=== PATIENT | female | born 1945 | race Hispanic/Latino ===

== ENCOUNTER → 2018-04-07 | Outpatient (CLI) | payer MEDICARE | END | disposition home or self-care (01) | LOC: SHCH 09:16 | PROVIDERS: ATTEND Internal Medicine Cardiovascular Disease | DX: I73.9 Peripheral vascular disease, unspecified (principal) | CPT/HCPCS: 93925 ==

== ENCOUNTER → 2019-02-13 | Outpatient (CLI) | payer MEDICARE ==
[~2019-02-13] MED LIST: ASPI-1197 PO; ATOR40TA69 PO; BENZ-51 PO; CARV6.25 PO; CLOP75TA32 PO; DULA1.5P SQ; FURO20TA4 PO; INSU100I21 SQ; IRON OTC PO; LACT1CAP60 PO; LISI10TA7 PO; LORA10CA9 PO; METF-444 PO; MIRA25TA PO; NITR0.4T50 SL; NOVOLOG
== END | disposition home or self-care (01) ==
LOC: SHCH 09:36
PROVIDERS: ATTEND Internal Medicine Cardiovascular Disease
DX: I65.23 Occlusion and stenosis of bilateral carotid arteries (principal); I25.10 Atherosclerotic heart disease of native coronary artery without angina pectoris
CPT/HCPCS: 93880

== ENCOUNTER 2019-10-06 17:11 | Emergency (ER) | payer MEDICARE ==
[~2019-10-06 17:11] MED LIST changes: -ATOR40TA69 PO; -BENZ-51 PO; +CARV12.511 PO; -CARV6.25 PO; -CLOP75TA32 PO; +DONE5TAB33 PO; -DULA1.5P SQ; +ISOS60TA4 PO; -LACT1CAP60 PO; -LISI10TA7 PO; -METF-444 PO; -MIRA25TA PO; +ROSU40TA21 PO
[2019-10-06 18:10] LABS: BASOPHILS % (AUTO) 0.4 % (0.0-5.0); EOSINOPHILS % (AUTO) 1.9 % (0.0-8.0); HEMATOCRIT 33.2 % (36-48); LYMPHOCYTES % (AUTO) 14.3 % (21.0-51.0); MEAN CORPUSCULAR HEMOGLOBIN 28.9 pg (27.0-33.0); MEAN CORPUSCULAR HGB CONC 32.2 g/dL (32.0-36.0); MEAN CORPUSCULAR VOLUME 89.7 fL (79-99); MONOCYTES % (AUTO) 6.6 % (3.0-13.0); NEUTROPHILS % (AUTO) 76.5 % (40.0-77.0); PLATELET COUNT (AUTO) 201 K/uL (130-400); RED CELL DISTRIBUTION WIDTH 12.8 % (11.0-15.5); WHITE BLOOD COUNT (AUTO) 7.4 K/uL (4.8-10.8)
[2019-10-06 18:20] LABS: CREATININE 1.5 mg/dL (0.5-1.5); POTASSIUM 3.2 mmol/L (3.5-5.1)
[2019-10-06 18:24] LABS: INR 0.99 (0.85-1.15); PARTIAL THROMBOPLASTIN TIME 26.1 SEC (26.3-35.5); PROTHROMBIN TIME 10.4 SEC (9.6-11.6)
[2019-10-06 18:25] LABS: ALBUMIN 2.9 g/dL (3.5-5.0); BILIRUBIN,TOTAL 0.3 mg/dL (0.2-1.0); TOTAL PROTEIN, SERUM 6.1 g/dL (6.0-8.3)
[2019-10-06] MEDS ORDERED: POTASSIUM CHLORIDE 10% ELIXIR 20 MEQ/15 ML UDCUP ONE (18:38)
[2019-10-06] MEDS ORDERED: SODIUM CHLORIDE 0.9% 500ML 500 ML IV ONE (18:38)
[2019-10-06 19:24] LABS: APPEARANCE,URINE Clear (CLEAR); BILIRUBIN,URINE Negative (NEGATIVE); COLOR,URINE Yellow (YELLOW); GLUCOSE, URINE (UA) Negative (NEGATIVE); KETONES,URINE Negative (NEGATIVE); LEUKOCYTE ESTERASE ,URINE Trace (NEGATIVE); NITRATE,URINE Negative (NEGATIVE); OCCULT BLOOD,URINE Trace (NEGATIVE); PROTEIN,URINE POS 1+ mg/dL (NEGATIVE); UROBILINOGEN,URINE 0.2 mg/dL (0.2-1.0)
[2019-10-06 19:33] LABS: BACTERIA,URINE Few /HPF (None Seen); MUCUS,URINE Moderate LPF (None Seen); SQUAMOUS EPITHELIAL CELL,UR Few /HPF (0-2)
== END 2019-10-06 20:14 | disposition home or self-care (01) ==
LOC: EDH 17:11
DX: E11.649 Type 2 diabetes mellitus with hypoglycemia without coma (principal); R19.7 Diarrhea, unspecified; E86.0 Dehydration; E78.5 Hyperlipidemia, unspecified; I11.0 Hypertensive heart disease with heart failure; I50.9 Heart failure, unspecified; I25.810 Atherosclerosis of coronary artery bypass graft(s) without angina pectoris; Z88.8 Allergy status to other drugs, medicaments and biological substances; Z79.4 Long term (current) use of insulin; Z98.890 Other specified postprocedural states; Z79.82 Long term (current) use of aspirin; Z79.899 Other long term (current) drug therapy
CPT/HCPCS: 36415; 80053; 81001; 82948 ×3; 85025; 85610; 85730; 93005; 99285; J7040

== ENCOUNTER → 2020-03-26 | Outpatient (CLI) | payer MEDICARE | END | disposition home or self-care (01) | LOC: CANPRECLI → SHCH 13:09 | PROVIDERS: ATTEND Internal Medicine Cardiovascular Disease | DX: I65.23 Occlusion and stenosis of bilateral carotid arteries (principal); I25.10 Atherosclerotic heart disease of native coronary artery without angina pectoris ==

== ENCOUNTER → 2021-05-07 | Outpatient (CLI) | payer MEDICARE ==
[~2021-05-07] MED LIST changes: -ISOS60TA4 PO; +ISOS60TA77 PO
== END | disposition home or self-care (01) ==
LOC: SHCH 09:41
PROVIDERS: ATTEND Internal Medicine Cardiovascular Disease
DX: I65.23 Occlusion and stenosis of bilateral carotid arteries (principal); I25.10 Atherosclerotic heart disease of native coronary artery without angina pectoris; I25.2 Old myocardial infarction; E11.9 Type 2 diabetes mellitus without complications; I10 Essential (primary) hypertension; E78.5 Hyperlipidemia, unspecified; Z95.0 Presence of cardiac pacemaker
CPT/HCPCS: 93880

== ENCOUNTER 2021-09-28 15:59 | Inpatient (IN) | payer MEDICARE ==
[~2021-09-28] VITALS: Ht 157.5 cm; Wt 99.8 kg
[2021-09-28] MEDS: 0.9%NACL 1000ML 1,000 ML IV SCH ×2 (01:00→16:30)
[2021-09-28] MEDS ORDERED: ONDANSETRON 4MG INJ IVP ONE (16:30)
[2021-09-28] MEDS ORDERED: ONDANSETRON 4MG INJ ONE ×2 (16:58→20:05)
[2021-09-28 17:03] LABS: BASOPHILS % (AUTO) 0.2 % (0.0-5.0); HEMATOCRIT 48.8 % (36-48); LYMPHOCYTES % (AUTO) 4.2 % (21.0-51.0); MEAN CORPUSCULAR HEMOGLOBIN 29.6 pg (27.0-33.0); MEAN CORPUSCULAR HGB CONC 30.5 g/dL (32.0-36.0); MONOCYTES % (AUTO) 2.5 % (3.0-13.0); NEUTROPHILS % (AUTO) 92.7 % (40.0-77.0); PLATELET COUNT (AUTO) 174 K/uL (130-400); RED BLOOD CELL COUNT(AUTO) 5.03 MIL/uL (4.00-5.50); RED CELL DISTRIBUTION WIDTH 13.3 % (11.0-15.5); WHITE BLOOD COUNT (AUTO) 15.7 K/uL (4.8-10.8)
[2021-09-28 17:25] LABS: ALBUMIN 3.2 g/dL (3.5-5.0); BILIRUBIN,TOTAL 0.7 mg/dL (0.2-1.0); CREATININE 1.4 mg/dL (0.5-1.5); CRP QUANTITATIVE 38.9 mg/L (0.00-9.0); POTASSIUM 4.1 mmol/L (3.5-5.1); TOTAL PROTEIN, SERUM 7.2 g/dL (6.0-8.3)
[2021-09-28] MEDS ORDERED: ASPIRIN 325MG TAB PO ONE (18:00)
[2021-09-28] MEDS ORDERED: INSULIN HUMULIN R 100 UNIT/ML 3ML SQ ONE (18:00)
[2021-09-28] MEDS ORDERED: NITROGLYCERIN 1GM OINT 1 INCH/1GM TD ONE ×2 (18:00→20:03)
[2021-09-28] MEDS ORDERED: CEFTRIAXONE 1G VIAL IVP ONE (19:00)
[2021-09-28] MEDS ORDERED: INSULIN HUMULIN R 100 UNIT/ML 3ML ONE (20:03)
[2021-09-28] MEDS ORDERED: ASPIRIN 325MG TAB ONE (20:03)
[2021-09-29] MEDS ORDERED: ENOXAPARIN SODIUM 30 MG/0.3 ML SQ SCH ×3
[2021-09-29] MEDS ORDERED: 1/2 NS 1000ML 1,000 ML IV SCH
[2021-09-29] MEDS ORDERED: ONDANSETRON 4MG INJ IVP PRN (00:30)
[2021-09-29] MEDS ORDERED: INSULIN HUMULIN R 100 UNIT/ML 3ML ONE (02:10)
[2021-09-29] MEDS ORDERED: GLUCAGON 1MG KIT 1 MG ML IM PRN (03:30)
[2021-09-29] MEDS ORDERED: DEXTROSE 50%-WATER 50 ML DISP.SYRIN IV PRN (03:30)
[2021-09-29 06:55] LABS: HEMATOCRIT 42.4 % (36-48); MEAN CORPUSCULAR HEMOGLOBIN 29.4 pg (27.0-33.0); MEAN CORPUSCULAR VOLUME 101.4 fL (79-99); RED BLOOD CELL COUNT(AUTO) 4.18 MIL/uL (4.00-5.50); RED CELL DISTRIBUTION WIDTH 13.5 % (11.0-15.5); WHITE BLOOD COUNT (AUTO) 13.5 K/uL (4.8-10.8)
[2021-09-29 07:08] LABS: ALBUMIN 2.6 g/dL (3.5-5.0); BILIRUBIN,TOTAL 0.3 mg/dL (0.2-1.0); CREATININE 1.8 mg/dL (0.5-1.5); POTASSIUM 4.1 mmol/L (3.5-5.1); TOTAL PROTEIN, SERUM 6.2 g/dL (6.0-8.3)
[2021-09-29] MEDS ORDERED: CEFTRIAXONE 1G VIAL 1 GM in 0.9%NACL 100ML 100 ML IVP SCH (08:00)
[2021-09-29] MEDS ORDERED: CEFTRIAXONE 1G VIAL ONE (09:38)
[2021-09-29] MEDS: INSULIN GLARGINE 100 UNITS/ML 10 ML VIAL SQ SCH ×2 (09:42→22:07)
[2021-09-29] MEDS: INSULIN R PO SS1 SQ SCH ×4 (09:42→21:00)
[2021-09-29] MEDS: 0.9%NACL 1000ML 1,000 ML IV SCH ×3 (09:42→20:09)
[2021-09-29 12:20] VITALS: BP 125/86
[2021-09-29 16:00] VITALS: BP 157/57
[2021-09-29 20:24] VITALS: BP 172/73
[2021-09-30 00:20] VITALS: BP 148/72
[2021-09-30] MEDS: 0.9%NACL 1000ML 1,000 ML IV SCH ×2 (01:50→21:50)
[2021-09-30 04:20] VITALS: BP 149/75
[2021-09-30 05:34] LABS: BASOPHILS % (AUTO) 0.3 % (0.0-5.0); EOSINOPHILS % (AUTO) 1.2 % (0.0-8.0); HEMATOCRIT 41.9 % (36-48); LYMPHOCYTES % (AUTO) 14.9 % (21.0-51.0); MEAN CORPUSCULAR HEMOGLOBIN 29.2 pg (27.0-33.0); MEAN CORPUSCULAR HGB CONC 29.6 g/dL (32.0-36.0); MEAN CORPUSCULAR VOLUME 98.6 fL (79-99); MONOCYTES % (AUTO) 6.1 % (3.0-13.0); PLATELET COUNT (AUTO) 151 K/uL (130-400); RED BLOOD CELL COUNT(AUTO) 4.25 MIL/uL (4.00-5.50); RED CELL DISTRIBUTION WIDTH 13.5 % (11.0-15.5); WHITE BLOOD COUNT (AUTO) 9.2 K/uL (4.8-10.8)
[2021-09-30 05:58] LABS: ALBUMIN 2.4 g/dL (3.5-5.0); BILIRUBIN,TOTAL 0.3 mg/dL (0.2-1.0); CREATININE 1.4 mg/dL (0.5-1.5); MAGNESIUM 1.9 mg/dL (1.80-2.40); PHOSPHORUS 2.7 mg/dL (2.5-4.9); POTASSIUM 3.7 mmol/L (3.5-5.1); TOTAL PROTEIN, SERUM 5.8 g/dL (6.0-8.3)
[2021-09-30] MEDS: INSULIN R PO SS1 SQ SCH ×4 (06:31→21:00)
[2021-09-30 08:00] VITALS: BP 153/62
[2021-09-30] MEDS: INSULIN GLARGINE 100 UNITS/ML 10 ML VIAL SQ SCH ×2 (09:51→21:54)
[2021-09-30 11:53] VITALS: BP 187/78
[2021-09-30 16:00] VITALS: BP 184/85
[2021-09-30 20:04] VITALS: BP 167/75
[2021-09-30] MEDS ORDERED: CARVEDILOL 12.5 MG TABLET PO ONE (23:49)
[2021-09-30] MEDS: CARVEDILOL 12.5 MG TABLET PO SCH (23:51)
[2021-10-01 00:04] VITALS: BP 189/89
[2021-10-01 04:04] VITALS: BP 175/75
[2021-10-01] MEDS: 0.9%NACL 1000ML 1,000 ML IV SCH (04:21)
[2021-10-01] MEDS: INSULIN R PO SS1 SQ SCH ×2 (06:39→12:26)
[2021-10-01 07:54] VITALS: BP 171/69
[2021-10-01] MEDS ORDERED: CEFTRIAXONE 1G VIAL IVP SCH (08:00)
[2021-10-01] MEDS: CARVEDILOL 12.5 MG TABLET PO SCH (09:42)
[2021-10-01] MEDS: INSULIN GLARGINE 100 UNITS/ML 10 ML VIAL SQ SCH (09:47)
[2021-10-01 12:00] VITALS: BP 188/74
== END 2021-10-01 13:45 | disposition home or self-care (01) | DRG 372 ==
LOC: EDH 15:59 → EDHIP 18:50 → OBSVTOIN 18:50 → 3BH 09-29 03:29 → EDHIP 09-29 04:05 → 3CH 09-29 12:20
PROVIDERS: ADMIT Internal Medicine; ATTEND Internal Medicine
DX: A04.9 Bacterial intestinal infection, unspecified (principal); Z68.41 Body mass index [BMI] 40.0-44.9, adult; I12.9 Hypertensive chronic kidney disease with stage 1 through stage 4 chronic kidney disease, or unspecified chronic kidney disease; K29.70 Gastritis, unspecified, without bleeding; D72.829 Elevated white blood cell count, unspecified; E11.65 Type 2 diabetes mellitus with hyperglycemia; E78.00 Pure hypercholesterolemia, unspecified; E86.0 Dehydration; N18.9 Chronic kidney disease, unspecified; E11.22 Type 2 diabetes mellitus with diabetic chronic kidney disease; E66.9 Obesity, unspecified; Z88.8 Allergy status to other drugs, medicaments and biological substances
CPT/HCPCS: 36415; 71045; 74176; 80053; 82010; 82948; 83605; 83690; 83735; 84100; 84484; 85025; 85027; 86140; 87040; 93005; G0378; J0696; J1650; J1815; J2405; J7030

== ENCOUNTER 2021-11-24 08:27 | Day surgery (SDC) | payer OTHER, MEDICARE ==
[2021-11-20 10:47] VITALS: BP 147/56
[2021-11-20 13:44] LABS: BASOPHILS % (AUTO) 0.6 % (0.0-5.0); EOSINOPHILS % (AUTO) 3.7 % (0.0-8.0); HEMATOCRIT 38.6 % (36-48); LYMPHOCYTES % (AUTO) 21.7 % (21.0-51.0); MEAN CORPUSCULAR HEMOGLOBIN 29.6 pg (27.0-33.0); MEAN CORPUSCULAR HGB CONC 31.9 g/dL (32.0-36.0); MONOCYTES % (AUTO) 6.8 % (3.0-13.0); PLATELET COUNT (AUTO) 148 K/uL (130-400); RED BLOOD CELL COUNT(AUTO) 4.15 MIL/uL (4.00-5.50); RED CELL DISTRIBUTION WIDTH 12.6 % (11.0-15.5); WHITE BLOOD COUNT (AUTO) 5.4 K/uL (4.8-10.8)
[2021-11-20 13:54] LABS: CREATININE 1.3 mg/dL (0.5-1.5)
[2021-11-20 13:57] LABS: INR 1.03 (0.85-1.15); PROTHROMBIN TIME 11.2 SEC (9.6-11.6)
[2021-11-20 13:58] LABS: PARTIAL THROMBOPLASTIN TIME 27.3 SEC (26.3-35.5)
[~2021-11-24] VITALS: Ht 167.6 cm; Wt 107.8 kg
[2021-11-24] VITALS (8 sets, daily range): BP systolic 114–151; BP diastolic 52–95
[~2021-11-24 08:27] MED LIST changes: +0.9% NACL 500ML IV.SOLN 500 ML IV SCH; -CARV12.511 PO; +CEFAZOLIN SODIUM 1 GM VIAL IVP SCH
[2021-11-24] MEDS ORDERED: 0.9%NACL 1000ML 1,000 ML IV ONE (08:41)
[2021-11-24] MEDS ORDERED: DULA1.5P SQ (09:43)
[2021-11-24] MEDS ORDERED: ESCI-8 PO (09:43)
[2021-11-24] MEDS ORDERED: EZET10TA48 PO (09:43)
[2021-11-24] MEDS ORDERED: INSNOV IVP (09:43)
[2021-11-24] MEDS ORDERED: INSLAN SQ (09:43)
[2021-11-24] MEDS ORDERED: CARV12.511 PO (09:43)
[2021-11-24] MEDS ORDERED: BUPIVACAINE/PF 0.25% 30ML VIAL IJ ONE (11:55)
[2021-11-24] MEDS ORDERED: IOHEXOL-350 50ML VIAL IV ONE (11:55)
[2021-11-24] MEDS ORDERED: LIDOCAINE HCL 1% MDV 50ML VIAL ONE (11:56)
[2021-11-24] MEDS ORDERED: MIDAZOLAM HCL 1 MG/ML 2ML VIAL ONE (11:56)
[2021-11-24] MEDS ORDERED: FENTANYL CITRATE PF 50 MCG/1 ML 2ML VIAL ONE (11:56)
[2021-11-24] MEDS ORDERED: MEPERIDINE-PF 50 MG/ML SYG ONE (12:56)
[2021-11-24] MEDS ORDERED: TRAM50TA4 PO (14:56)
[2021-11-24] MEDS ORDERED: ACETAMINOPHEN WITH CODEINE 1 TAB TAB PO PRN (15:00)
== END 2021-11-24 17:05 | disposition home or self-care (01) ==
LOC: DAH 08:27
PROVIDERS: ATTEND Internal Medicine Cardiovascular Disease
DX: Z45.010 Encounter for checking and testing of cardiac pacemaker pulse generator [battery] (principal); I49.5 Sick sinus syndrome; I44.0 Atrioventricular block, first degree; E11.22 Type 2 diabetes mellitus with diabetic chronic kidney disease; I12.9 Hypertensive chronic kidney disease with stage 1 through stage 4 chronic kidney disease, or unspecified chronic kidney disease; N18.30 Chronic kidney disease, stage 3 unspecified; E11.40 Type 2 diabetes mellitus with diabetic neuropathy, unspecified; E11.21 Type 2 diabetes mellitus with diabetic nephropathy; E78.5 Hyperlipidemia, unspecified; I25.10 Atherosclerotic heart disease of native coronary artery without angina pectoris; I25.2 Old myocardial infarction; Z79.01 Long term (current) use of anticoagulants; Z95.5 Presence of coronary angioplasty implant and graft; Z86.73 Personal history of transient ischemic attack (TIA), and cerebral infarction without residual deficits; Z83.3 Family history of diabetes mellitus; Z80.9 Family history of malignant neoplasm, unspecified; Z79.82 Long term (current) use of aspirin; Z79.899 Other long term (current) drug therapy; Z98.890 Other specified postprocedural states
CPT/HCPCS: 33228; 36415; 80048; 82948; 85025; 85610; 85730; 93005 ×2; A4215; A4216; A4221; A4222; A4223 ×3; A4606; A4663; C1785; J0690; J2175; J2250; J3490 ×2; J7030; 33229; 99156; 99157; C2621; J3010; Q9967

== ENCOUNTER 2022-01-25 17:31 | Inpatient (IN) | payer OTHER, MEDICARE ==
[~2022-01-25] VITALS: Ht 167.6 cm; Wt 113.7 kg
[~2022-01-25 17:31] MED LIST changes: -0.9% NACL 500ML IV.SOLN 500 ML IV SCH; +CARV12.511 PO; -CEFAZOLIN SODIUM 1 GM VIAL IVP SCH; +DULA1.5P SQ; +ESCI-8 PO; +EZET10TA48 PO; +INSLAN SQ; +INSNOV IVP; -INSU100I21 SQ; -IRON OTC PO; -NITR0.4T50 SL; -NOVOLOG; -ROSU40TA21 PO; +TRAM50TA4 PO
[2022-01-25 17:47] LABS: BASOPHILS % (AUTO) 0.5 % (0.0-5.0); HEMATOCRIT 39.9 % (36-48); MEAN CORPUSCULAR HEMOGLOBIN 29.6 pg (27.0-33.0); MEAN CORPUSCULAR HGB CONC 31.3 g/dL (32.0-36.0); MEAN CORPUSCULAR VOLUME 94.5 fL (79-99); MONOCYTES % (AUTO) 5.5 % (3.0-13.0); NEUTROPHILS % (AUTO) 77.7 % (40.0-77.0); PLATELET COUNT (AUTO) 149 K/uL (130-400); RED BLOOD CELL COUNT(AUTO) 4.22 MIL/uL (4.00-5.50); RED CELL DISTRIBUTION WIDTH 13.4 % (11.0-15.5); WHITE BLOOD COUNT (AUTO) 6.5 K/uL (4.8-10.8)
[2022-01-25 17:58] LABS: CREATININE 1.1 mg/dL (0.5-1.5); POTASSIUM 3.9 mmol/L (3.5-5.1)
[2022-01-25] MEDS ORDERED: FUROSEMIDE 40MG VIAL IV ONE (18:00)
[2022-01-25] MEDS ORDERED: NIFEDIPINE 10 MG CAP PO ONE (18:00)
[2022-01-25 18:07] LABS: ALBUMIN 2.6 g/dL (3.5-5.0); BILIRUBIN,TOTAL 0.2 mg/dL (0.2-1.0)
[2022-01-25] MEDS ORDERED: INSULIN HUMULIN R 100 UNIT/ML 3ML IV ONE (18:30)
[2022-01-25] MEDS ORDERED: NITROGLYCERIN 1GM OINT 1 INCH/1GM TD ONE (18:30)
[2022-01-26] VITALS (8 sets, daily range): BP systolic 153–190; BP diastolic 60–82
[2022-01-26 01:42] LABS: CREATINE KINASE, TOTAL 90 U/L (21-232); MYOGLOBIN 64 ng/mL (10-92)
[2022-01-26] MEDS ORDERED: FUROSEMIDE 40MG VIAL IV SCH (03:30)
[2022-01-26] MEDS ORDERED: ROSU40TA21 PO (03:50)
[2022-01-26] MEDS: CEFTRIAXONE 1G VIAL IVP SCH (04:07)
[2022-01-26] MEDS: FUROSEMIDE 40MG VIAL IV SCH ×3 (04:08→21:16)
[2022-01-26 05:57] LABS: BASOPHILS % (AUTO) 0.3 % (0.0-5.0); HEMATOCRIT 37.8 % (36-48); LYMPHOCYTES % (AUTO) 17.2 % (21.0-51.0); MEAN CORPUSCULAR HEMOGLOBIN 29.8 pg (27.0-33.0); MEAN CORPUSCULAR HGB CONC 31.5 g/dL (32.0-36.0); MEAN CORPUSCULAR VOLUME 94.7 fL (79-99); MONOCYTES % (AUTO) 6.3 % (3.0-13.0); PLATELET COUNT (AUTO) 152 K/uL (130-400); RED BLOOD CELL COUNT(AUTO) 3.99 MIL/uL (4.00-5.50); RED CELL DISTRIBUTION WIDTH 13.5 % (11.0-15.5); WHITE BLOOD COUNT (AUTO) 6.3 K/uL (4.8-10.8)
[2022-01-26 06:07] LABS: CREATININE 1.1 mg/dL (0.5-1.5); POTASSIUM 3.6 mmol/L (3.5-5.1)
[2022-01-26 06:18] LABS: ALBUMIN 2.5 g/dL (3.5-5.0); BILIRUBIN,TOTAL 0.3 mg/dL (0.2-1.0); TOTAL PROTEIN, SERUM 5.7 g/dL (6.0-8.3)
[2022-01-26] MEDS: ISOSORBIDE MONO 60MG SR TAB PO SCH (08:53)
[2022-01-26] MEDS: CITALOPRAM 20 MG TABLET PO SCH (08:54)
[2022-01-26] MEDS: EZETIMIBE 10 MG TAB PO SCH (08:54)
[2022-01-26] MEDS: LORATADINE 10 MG TABLET PO SCH (08:54)
[2022-01-26] MEDS: ASPIRIN 81MG CHEW TAB PO SCH (08:54)
[2022-01-26] MEDS: DONEPEZIL HCL 5 MG TAB PO SCH (08:54)
[2022-01-26] MEDS ORDERED: IOHEXOL-350 75 ML VIAL IV ONE (12:00)
[2022-01-26] MEDS: INSULIN HUMULIN R 100 UNIT/ML 3ML SQ SCH ×2 (16:44→21:24)
[2022-01-26] MEDS: ATORVASTATIN 40 MG TABLET PO SCH (21:10)
[2022-01-26] MEDS: CARVEDILOL 12.5 MG TABLET PO SCH (21:11)
[2022-01-27 03:40] VITALS: BP 140/71
[2022-01-27 04:10] LABS: HEMATOCRIT 37.2 % (36-48); MEAN CORPUSCULAR HEMOGLOBIN 29.4 pg (27.0-33.0); MEAN CORPUSCULAR HGB CONC 31.5 g/dL (32.0-36.0); MEAN CORPUSCULAR VOLUME 93.5 fL (79-99); RED BLOOD CELL COUNT(AUTO) 3.98 MIL/uL (4.00-5.50); RED CELL DISTRIBUTION WIDTH 13.2 % (11.0-15.5); WHITE BLOOD COUNT (AUTO) 8.1 K/uL (4.8-10.8)
[2022-01-27] MEDS: CEFTRIAXONE 1G VIAL IVP SCH (04:11)
[2022-01-27] MEDS: FUROSEMIDE 40MG VIAL IV SCH (04:12)
[2022-01-27 04:28] LABS: ALBUMIN 2.5 g/dL (3.5-5.0); BILIRUBIN,TOTAL 0.3 mg/dL (0.2-1.0); CREATININE 1.1 mg/dL (0.5-1.5); POTASSIUM 3.4 mmol/L (3.5-5.1); TOTAL PROTEIN, SERUM 5.7 g/dL (6.0-8.3)
[2022-01-27] MEDS: INSULIN HUMULIN R 100 UNIT/ML 3ML SQ SCH ×4 (06:53→20:43)
[2022-01-27] MEDS ORDERED: POTASSIUM CHLORIDE 10% ELIXIR 20 MEQ/15 ML UDCUP PO PRN (07:00)
[2022-01-27] MEDS ORDERED: POTASSIUM CHLORIDE 20MEQ/100ML 100 ML IV PRN (07:00)
[2022-01-27] MEDS ORDERED: GLUCAGON 1MG KIT 1 MG ML IM PRN (07:00)
[2022-01-27] MEDS ORDERED: LIDOCAINE HCL-MPF 1% 2ML VIAL IV PRN (07:00)
[2022-01-27] MEDS: KCL 20 MEQ ERTAB PO PRN (07:03)
[2022-01-27 08:14] VITALS: BP 181/79
[2022-01-27] MEDS: ISOSORBIDE MONO 60MG SR TAB PO SCH (08:44)
[2022-01-27] MEDS: LORATADINE 10 MG TABLET PO SCH (08:44)
[2022-01-27] MEDS: ASPIRIN 81MG CHEW TAB PO SCH (08:44)
[2022-01-27] MEDS: EZETIMIBE 10 MG TAB PO SCH (08:44)
[2022-01-27] MEDS: CITALOPRAM 20 MG TABLET PO SCH (08:44)
[2022-01-27] MEDS: DONEPEZIL HCL 5 MG TAB PO SCH (08:44)
[2022-01-27] MEDS ORDERED: LOSARTAN 25 MG TABLET PO SCH (09:00)
[2022-01-27 11:42] VITALS: BP 156/70
[2022-01-27 16:23] VITALS: BP 196/76
[2022-01-27] MEDS: CLONIDINE HCL 0.1 MG TABLET PO PRN (18:07)
[2022-01-27] MEDS: ATORVASTATIN 40 MG TABLET PO SCH (20:33)
[2022-01-27] MEDS: CARVEDILOL 12.5 MG TABLET PO SCH (20:34)
[2022-01-27 20:40] VITALS: BP 161/58
[2022-01-27] MEDS: INSULIN GLARGINE 100 UNITS/ML 10 ML VIAL SQ SCH (20:44)
[2022-01-27 23:31] VITALS: BP 143/61
[2022-01-28] MEDS: CEFTRIAXONE 1G VIAL IVP SCH (03:38)
[2022-01-28 04:11] VITALS: BP 142/67
[2022-01-28 04:41] LABS: HEMATOCRIT 36.4 % (36-48); MEAN CORPUSCULAR HGB CONC 32.1 g/dL (32.0-36.0); MEAN CORPUSCULAR VOLUME 93.3 fL (79-99); RED BLOOD CELL COUNT(AUTO) 3.9 MIL/uL (4.00-5.50); RED CELL DISTRIBUTION WIDTH 13.2 % (11.0-15.5); WHITE BLOOD COUNT (AUTO) 5.5 K/uL (4.8-10.8)
[2022-01-28 04:55] LABS: CREATININE 1.4 mg/dL (0.5-1.5); POTASSIUM 3.2 mmol/L (3.5-5.1)
[2022-01-28] MEDS: KCL 20 MEQ ERTAB PO PRN ×3 (06:02→10:48)
[2022-01-28] MEDS: INSULIN HUMULIN R 100 UNIT/ML 3ML SQ SCH ×4 (06:02→20:42)
[2022-01-28 07:34] VITALS: BP 140/52
[2022-01-28] MEDS: LORATADINE 10 MG TABLET PO SCH (09:35)
[2022-01-28] MEDS: ISOSORBIDE MONO 60MG SR TAB PO SCH (09:35)
[2022-01-28] MEDS: ASPIRIN 81MG CHEW TAB PO SCH (09:35)
[2022-01-28] MEDS: CITALOPRAM 20 MG TABLET PO SCH (09:35)
[2022-01-28] MEDS: EZETIMIBE 10 MG TAB PO SCH (09:35)
[2022-01-28] MEDS: DONEPEZIL HCL 5 MG TAB PO SCH (09:35)
[2022-01-28 11:11] VITALS: BP 180/67
[2022-01-28 15:57] VITALS: BP 169/98
[2022-01-28 20:04] VITALS: BP 184/69
[2022-01-28] MEDS: CARVEDILOL 12.5 MG TABLET PO SCH (20:33)
[2022-01-28] MEDS: ATORVASTATIN 40 MG TABLET PO SCH (20:33)
[2022-01-28] MEDS: INSULIN GLARGINE 100 UNITS/ML 10 ML VIAL SQ SCH (20:43)
[2022-01-28 23:34] VITALS: BP 174/78
[2022-01-28] MEDS: CLONIDINE HCL 0.1 MG TABLET PO PRN (23:39)
[2022-01-29] VITALS (8 sets, daily range): BP systolic 134–182; BP diastolic 58–83
[2022-01-29 01:36] LABS: APPEARANCE,URINE Cloudy (CLEAR); BILIRUBIN,URINE Negative (NEGATIVE); COLOR,URINE Yellow (YELLOW); GLUCOSE, URINE (UA) Negative (NEGATIVE); KETONES,URINE Negative (NEGATIVE); LEUKOCYTE ESTERASE ,URINE Small (NEGATIVE); NITRATE,URINE Negative (NEGATIVE); OCCULT BLOOD,URINE Small (NEGATIVE); PH,URINE 5.5 (5.0-8.0); PROTEIN,URINE 300 mg/dL (NEGATIVE); UROBILINOGEN,URINE 0.2 mg/dL (0.2-1.0)
[2022-01-29 01:48] LABS: BACTERIA,URINE Few /HPF (None Seen); SQUAMOUS EPITHELIAL CELL,UR Many /HPF (0-2)
[2022-01-29] MEDS: CEFTRIAXONE 1G VIAL IVP SCH (02:42)
[2022-01-29] MEDS: CLONIDINE HCL 0.1 MG TABLET PO PRN ×2 (04:30→08:22)
[2022-01-29 05:08] LABS: CREATININE 1.2 mg/dL (0.5-1.5); POTASSIUM 3.9 mmol/L (3.5-5.1)
[2022-01-29] MEDS: INSULIN HUMULIN R 100 UNIT/ML 3ML SQ SCH ×4 (06:17→20:13)
[2022-01-29] MEDS ORDERED: AMLO5TAB4 PO (06:21)
[2022-01-29] MEDS: CITALOPRAM 20 MG TABLET PO SCH (08:21)
[2022-01-29] MEDS: ISOSORBIDE MONO 60MG SR TAB PO SCH (08:21)
[2022-01-29] MEDS: EZETIMIBE 10 MG TAB PO SCH (08:21)
[2022-01-29] MEDS: AMLODIPINE 5 MG TAB PO SCH (08:22)
[2022-01-29] MEDS: LORATADINE 10 MG TABLET PO SCH (08:22)
[2022-01-29] MEDS: DONEPEZIL HCL 5 MG TAB PO SCH (08:22)
[2022-01-29] MEDS: ASPIRIN 81MG CHEW TAB PO SCH (08:22)
[2022-01-29] MEDS ORDERED: ACETAMINOPHEN 500 MG TABLET ONE (16:22)
[2022-01-29] MEDS: CARVEDILOL 12.5 MG TABLET PO SCH (20:10)
[2022-01-29] MEDS: ATORVASTATIN 40 MG TABLET PO SCH (20:11)
[2022-01-29] MEDS: INSULIN GLARGINE 100 UNITS/ML 10 ML VIAL SQ SCH (20:14)
[2022-01-30] MEDS: CEFTRIAXONE 1G VIAL IVP SCH (02:39)
[2022-01-30 04:20] VITALS: BP 154/71
[2022-01-30 04:28] LABS: CREATININE 1.3 mg/dL (0.5-1.5); POTASSIUM 3.9 mmol/L (3.5-5.1)
[2022-01-30] MEDS: INSULIN HUMULIN R 100 UNIT/ML 3ML SQ SCH ×3 (05:13→21:17)
[2022-01-30 08:24] VITALS: BP 164/74
[2022-01-30] MEDS ORDERED: LOSARTAN 50 MG TABLET ONE (08:24)
[2022-01-30] MEDS: AMLODIPINE 5 MG TAB PO SCH (08:28)
[2022-01-30] MEDS: ISOSORBIDE MONO 60MG SR TAB PO SCH (08:28)
[2022-01-30] MEDS: ACETAMINOPHEN 500 MG TABLET PO PRN (08:29)
[2022-01-30] MEDS: CITALOPRAM 20 MG TABLET PO SCH (08:30)
[2022-01-30] MEDS: ASPIRIN 81MG CHEW TAB PO SCH (08:30)
[2022-01-30] MEDS: EZETIMIBE 10 MG TAB PO SCH (08:30)
[2022-01-30] MEDS: DONEPEZIL HCL 5 MG TAB PO SCH (08:30)
[2022-01-30] MEDS: LORATADINE 10 MG TABLET PO SCH (08:30)
[2022-01-30] MEDS: LOSARTAN 50 MG TABLET PO SCH (08:36)
[2022-01-30 11:10] VITALS: BP 164/69
[2022-01-30 15:43] VITALS: BP 155/62
[2022-01-30 20:19] VITALS: BP 162/68
[2022-01-30] MEDS: ATORVASTATIN 40 MG TABLET PO SCH (21:09)
[2022-01-30] MEDS: CARVEDILOL 12.5 MG TABLET PO SCH (21:09)
[2022-01-30] MEDS: INSULIN GLARGINE 100 UNITS/ML 10 ML VIAL SQ SCH (21:15)
[2022-01-30 23:31] VITALS: BP 164/82
[2022-01-31] MEDS: CLONIDINE HCL 0.1 MG TABLET PO PRN (00:22)
[2022-01-31] MEDS: CEFTRIAXONE 1G VIAL IVP SCH (02:47)
[2022-01-31 04:44] VITALS: BP 151/62
[2022-01-31] MEDS: INSULIN HUMULIN R 100 UNIT/ML 3ML SQ SCH ×4 (05:47→21:33)
[2022-01-31 08:12] VITALS: BP 154/69
[2022-01-31] MEDS: AMLODIPINE 5 MG TAB PO SCH (08:52)
[2022-01-31] MEDS: LORATADINE 10 MG TABLET PO SCH (08:52)
[2022-01-31] MEDS: LOSARTAN 50 MG TABLET PO SCH (08:52)
[2022-01-31] MEDS: EZETIMIBE 10 MG TAB PO SCH (08:53)
[2022-01-31] MEDS: ISOSORBIDE MONO 60MG SR TAB PO SCH (08:53)
[2022-01-31] MEDS: DONEPEZIL HCL 5 MG TAB PO SCH (08:53)
[2022-01-31] MEDS: CITALOPRAM 20 MG TABLET PO SCH (08:53)
[2022-01-31] MEDS: ASPIRIN 81MG CHEW TAB PO SCH (08:53)
[2022-01-31] MEDS: ACETAMINOPHEN 500 MG TABLET PO PRN (09:05)
[2022-01-31 11:11] VITALS: BP 159/71
[2022-01-31 16:22] VITALS: BP 148/70
[2022-01-31 20:32] VITALS: BP 186/76
[2022-01-31] MEDS: ATORVASTATIN 40 MG TABLET PO SCH (21:23)
[2022-01-31] MEDS: CARVEDILOL 12.5 MG TABLET PO SCH (21:28)
[2022-01-31] MEDS: INSULIN GLARGINE 100 UNITS/ML 10 ML VIAL SQ SCH (21:32)
[2022-01-31 23:43] VITALS: BP 150/65
[2022-02-01 03:55] VITALS: BP 178/65
[2022-02-01] MEDS: CEFTRIAXONE 1G VIAL IVP SCH (04:17)
[2022-02-01] MEDS: INSULIN HUMULIN R 100 UNIT/ML 3ML SQ SCH ×4 (06:16→20:31)
[2022-02-01 07:35] VITALS: BP_SYST 197; BP_SYST 203; BP_DIAS 75; BP_DIAS 82
[2022-02-01] MEDS: AMLODIPINE 5 MG TAB PO SCH (08:27)
[2022-02-01] MEDS: LOSARTAN 50 MG TABLET PO SCH (08:27)
[2022-02-01] MEDS: CLONIDINE HCL 0.1 MG TABLET PO PRN (08:27)
[2022-02-01] MEDS: EZETIMIBE 10 MG TAB PO SCH (08:27)
[2022-02-01] MEDS: ASPIRIN 81MG CHEW TAB PO SCH (08:27)
[2022-02-01] MEDS: LORATADINE 10 MG TABLET PO SCH (08:27)
[2022-02-01] MEDS: CITALOPRAM 20 MG TABLET PO SCH (08:27)
[2022-02-01] MEDS: ISOSORBIDE MONO 60MG SR TAB PO SCH (08:28)
[2022-02-01 09:30] VITALS: BP_SYST 183; BP_SYST 196; BP_DIAS 59; BP_DIAS 67
[2022-02-01 11:35] VITALS: BP 194/56
[2022-02-01] MEDS: DONEPEZIL HCL 5 MG TAB PO SCH (12:05)
[2022-02-01] MEDS: CARVEDILOL 25 MG TABLET PO SCH ×2 (12:40→20:29)
[2022-02-01 15:35] VITALS: BP 129/50
[2022-02-01 20:00] VITALS: BP 155/60
[2022-02-01] MEDS: ATORVASTATIN 40 MG TABLET PO SCH (20:29)
[2022-02-01] MEDS: INSULIN GLARGINE 100 UNITS/ML 10 ML VIAL SQ SCH (20:30)
[2022-02-02] VITALS (7 sets, daily range): BP systolic 135–165; BP diastolic 51–73
[2022-02-02] MEDS: CEFTRIAXONE 1G VIAL IVP SCH (02:39)
[2022-02-02 04:37] LABS: BASOPHILS % (AUTO) 0.4 % (0.0-5.0); EOSINOPHILS % (AUTO) 3.8 % (0.0-8.0); HEMATOCRIT 36.3 % (36-48); MEAN CORPUSCULAR HEMOGLOBIN 30.2 pg (27.0-33.0); MEAN CORPUSCULAR HGB CONC 32.2 g/dL (32.0-36.0); MEAN CORPUSCULAR VOLUME 93.8 fL (79-99); MONOCYTES % (AUTO) 7.7 % (3.0-13.0); NEUTROPHILS % (AUTO) 64.9 % (40.0-77.0); PLATELET COUNT (AUTO) 130 K/uL (130-400); RED BLOOD CELL COUNT(AUTO) 3.87 MIL/uL (4.00-5.50); RED CELL DISTRIBUTION WIDTH 12.7 % (11.0-15.5); WHITE BLOOD COUNT (AUTO) 4.7 K/uL (4.8-10.8)
[2022-02-02 05:04] LABS: ALBUMIN 2.3 g/dL (3.5-5.0); BILIRUBIN,TOTAL 0.2 mg/dL (0.2-1.0); CREATININE 1.4 mg/dL (0.5-1.5); POTASSIUM 4.2 mmol/L (3.5-5.1); TOTAL PROTEIN, SERUM 5.5 g/dL (6.0-8.3)
[2022-02-02] MEDS: INSULIN HUMULIN R 100 UNIT/ML 3ML SQ SCH ×4 (05:59→20:14)
[2022-02-02] MEDS: CITALOPRAM 20 MG TABLET PO SCH (09:29)
[2022-02-02] MEDS: EZETIMIBE 10 MG TAB PO SCH (09:29)
[2022-02-02] MEDS: DONEPEZIL HCL 5 MG TAB PO SCH (09:30)
[2022-02-02] MEDS: CARVEDILOL 25 MG TABLET PO SCH ×2 (09:31→20:15)
[2022-02-02] MEDS: ASPIRIN 81MG CHEW TAB PO SCH (09:32)
[2022-02-02] MEDS: LORATADINE 10 MG TABLET PO SCH (09:33)
[2022-02-02] MEDS: AMLODIPINE 5 MG TAB PO SCH (09:33)
[2022-02-02] MEDS: ISOSORBIDE MONO 60MG SR TAB PO SCH (09:34)
[2022-02-02] MEDS: LOSARTAN 100 MG TABLET PO SCH (09:34)
[2022-02-02] MEDS ORDERED: FUROSEMIDE 20 MG TABLET ONE (12:45)
[2022-02-02] MEDS: FUROSEMIDE 20 MG TABLET PO SCH (13:06)
[2022-02-02] MEDS ORDERED: DIPHENOXYLATE HCL/ATROPINE 2.5/0.025 MG TAB PO SCH (17:00)
[2022-02-02] MEDS ORDERED: LOPERAMIDE HCL 2 MG CAP PO PRN (18:30)
[2022-02-02] MEDS: INSULIN GLARGINE 100 UNITS/ML 10 ML VIAL SQ SCH (20:13)
[2022-02-02] MEDS: ATORVASTATIN 40 MG TABLET PO SCH (20:15)
[2022-02-03 04:00] VITALS: BP 151/75
[2022-02-03] MEDS: CEFTRIAXONE 1G VIAL IVP SCH (04:23)
[2022-02-03] MEDS: INSULIN HUMULIN R 100 UNIT/ML 3ML SQ SCH ×4 (06:25→21:49)
[2022-02-03 08:00] VITALS: BP 154/75
[2022-02-03] MEDS: FUROSEMIDE 20 MG TABLET PO SCH (09:00)
[2022-02-03] MEDS ORDERED: FUROSEMIDE 20 MG TABLET ONE (09:18)
[2022-02-03] MEDS: CITALOPRAM 20 MG TABLET PO SCH (09:40)
[2022-02-03] MEDS: ASPIRIN 81MG CHEW TAB PO SCH (09:42)
[2022-02-03] MEDS: CARVEDILOL 25 MG TABLET PO SCH ×2 (09:43→21:56)
[2022-02-03] MEDS: ISOSORBIDE MONO 60MG SR TAB PO SCH (09:44)
[2022-02-03] MEDS: DONEPEZIL HCL 5 MG TAB PO SCH (09:44)
[2022-02-03] MEDS: LORATADINE 10 MG TABLET PO SCH (09:45)
[2022-02-03] MEDS: AMLODIPINE 5 MG TAB PO SCH (09:46)
[2022-02-03] MEDS: LOSARTAN 100 MG TABLET PO SCH (09:46)
[2022-02-03] MEDS: EZETIMIBE 10 MG TAB PO SCH (09:46)
[2022-02-03 11:56] VITALS: BP 180/72
[2022-02-03 16:00] VITALS: BP 149/60
[2022-02-03 20:00] VITALS: BP 142/60
[2022-02-03] MEDS: INSULIN GLARGINE 100 UNITS/ML 10 ML VIAL SQ SCH (21:48)
[2022-02-03] MEDS: ATORVASTATIN 40 MG TABLET PO SCH (21:55)
[2022-02-03] MEDS: ACETAMINOPHEN 500 MG TABLET PO PRN (21:55)
[2022-02-04] VITALS (7 sets, daily range): BP systolic 127–156; BP diastolic 42–80
[2022-02-04] MEDS: CEFTRIAXONE 1G VIAL IVP SCH (03:09)
[2022-02-04] MEDS: INSULIN HUMULIN R 100 UNIT/ML 3ML SQ SCH ×4 (06:06→21:27)
[2022-02-04] MEDS: EZETIMIBE 10 MG TAB PO SCH (10:18)
[2022-02-04] MEDS: AMLODIPINE 5 MG TAB PO SCH (10:18)
[2022-02-04] MEDS: ASPIRIN 81MG CHEW TAB PO SCH (10:18)
[2022-02-04] MEDS: LOSARTAN 100 MG TABLET PO SCH (10:18)
[2022-02-04] MEDS: LORATADINE 10 MG TABLET PO SCH (10:18)
[2022-02-04] MEDS: DONEPEZIL HCL 5 MG TAB PO SCH (10:18)
[2022-02-04] MEDS: ISOSORBIDE MONO 60MG SR TAB PO SCH (10:18)
[2022-02-04] MEDS: CITALOPRAM 20 MG TABLET PO SCH (10:18)
[2022-02-04] MEDS: CARVEDILOL 25 MG TABLET PO SCH ×2 (10:19→21:01)
[2022-02-04] MEDS: FUROSEMIDE 20 MG TABLET PO SCH (10:20)
[2022-02-04] MEDS: ATORVASTATIN 40 MG TABLET PO SCH (21:01)
[2022-02-04] MEDS: INSULIN GLARGINE 100 UNITS/ML 10 ML VIAL SQ SCH (21:29)
[2022-02-05] MEDS: DEXTROSE 50%-WATER 50 ML DISP.SYRIN IV PRN ×2 (01:45→04:51)
[2022-02-05] MEDS: CEFTRIAXONE 1G VIAL IVP SCH (04:04)
[2022-02-05 04:16] VITALS: BP 152/75
[2022-02-05] MEDS: INSULIN HUMULIN R 100 UNIT/ML 3ML SQ SCH ×2 (07:30→12:30)
[2022-02-05 08:00] VITALS: BP 158/48
[2022-02-05] MEDS: CITALOPRAM 20 MG TABLET PO SCH (08:55)
[2022-02-05] MEDS: AMLODIPINE 5 MG TAB PO SCH (08:55)
[2022-02-05] MEDS: LORATADINE 10 MG TABLET PO SCH (08:55)
[2022-02-05 08:56] VITALS: BP 158/48
[2022-02-05] MEDS: CARVEDILOL 25 MG TABLET PO SCH (08:56)
[2022-02-05] MEDS: ISOSORBIDE MONO 60MG SR TAB PO SCH (08:56)
[2022-02-05] MEDS: LOSARTAN 100 MG TABLET PO SCH (08:56)
[2022-02-05] MEDS: EZETIMIBE 10 MG TAB PO SCH (08:57)
[2022-02-05] MEDS: DONEPEZIL HCL 5 MG TAB PO SCH (08:57)
[2022-02-05] MEDS: ASPIRIN 81MG CHEW TAB PO SCH (08:57)
[2022-02-05] MEDS ORDERED: FUROSEMIDE 20 MG TABLET ONE (13:17)
[2022-02-05] MEDS: FUROSEMIDE 20 MG TABLET PO SCH (13:19)
== END 2022-02-05 14:30 | disposition home or self-care (01) | DRG 291 ==
LOC: EDH 17:31 → EDHIP 18:51 → 4AH 01-26 03:25 → 3BH 02-01 05:47
PROVIDERS: ADMIT Internal Medicine; ATTEND Internal Medicine
DX: I13.0 Hypertensive heart and chronic kidney disease with heart failure and stage 1 through stage 4 chronic kidney disease, or unspecified chronic kidney disease (principal); I50.33 Acute on chronic diastolic (congestive) heart failure; J44.1 Chronic obstructive pulmonary disease with (acute) exacerbation; E66.2 Morbid (severe) obesity with alveolar hypoventilation; E87.0 Hyperosmolality and hypernatremia; I31.3 Pericardial effusion (noninflammatory); N17.9 Acute kidney failure, unspecified; Z68.41 Body mass index [BMI] 40.0-44.9, adult; J44.0 Chronic obstructive pulmonary disease with (acute) lower respiratory infection; Z20.822 Contact with and (suspected) exposure to COVID-19; N18.31 Chronic kidney disease, stage 3a; E11.22 Type 2 diabetes mellitus with diabetic chronic kidney disease; E11.65 Type 2 diabetes mellitus with hyperglycemia; E78.00 Pure hypercholesterolemia, unspecified; E78.5 Hyperlipidemia, unspecified; E11.9 Type 2 diabetes mellitus without complications; I25.10 Atherosclerotic heart disease of native coronary artery without angina pectoris; J20.9 Acute bronchitis, unspecified; T50.2X5A Adverse effect of carbonic-anhydrase inhibitors, benzothiadiazides and other diuretics, initial encounter; M19.90 Unspecified osteoarthritis, unspecified site; Z88.8 Allergy status to other drugs, medicaments and biological substances; Z95.0 Presence of cardiac pacemaker; Z95.1 Presence of aortocoronary bypass graft; Z86.73 Personal history of transient ischemic attack (TIA), and cerebral infarction without residual deficits; Y92.89 Other specified places as the place of occurrence of the external cause; Z79.4 Long term (current) use of insulin; Z79.899 Other long term (current) drug therapy
CPT/HCPCS: 36415; 71046; 71275; 80048; 80053; 81001; 82550; 82948; 83874; 83880; 84443; 84484; 85025; 85027; 86038; 86215; 86235; 86431; 87088; 87635; 87804; 93005; 93306; 93356; 94760; C9803; G0378; J0696; J1815; J1940; J7070; Q9967

== ENCOUNTER → 2023-06-09 | Outpatient (CLI) | payer OTHER, MEDICARE ==
[~2023-06-09] MED LIST changes: +AMLO5TAB4 PO; +CHOL200012 PO; +ERYT1OIN7 OP; +GANC5GEL2 OP; +INSU100V12 SQ; +IRON18TA PO; +ISOS20TA85 PO; +LORA10TA7 PO; +MECO10005 PO; +MULT-1192 PO; +NITR0.3T11 SL; +ROSU40TA21 PO
== END | disposition home or self-care (01) ==
LOC: SHCH 11:30
PROVIDERS: ATTEND Internal Medicine Cardiovascular Disease
DX: I65.22 Occlusion and stenosis of left carotid artery (principal)
CPT/HCPCS: 93880

== ENCOUNTER → 2023-07-26 | Outpatient (CLI) | payer OTHER, MEDICARE | END | disposition home or self-care (01) | LOC: RAH 16:18 | PROVIDERS: ATTEND Internal Medicine | DX: M47.22 Other spondylosis with radiculopathy, cervical region (principal); M48.02 Spinal stenosis, cervical region | CPT/HCPCS: 72040 ==

== ENCOUNTER → 2024-02-10 | Outpatient (CLI) | payer OTHER, MEDICARE | END | disposition home or self-care (01) | LOC: SHCH 13:32 | PROVIDERS: ATTEND Internal Medicine Cardiovascular Disease | DX: I34.0 Nonrheumatic mitral (valve) insufficiency (principal); R55 Syncope and collapse; I51.89 Other ill-defined heart diseases | CPT/HCPCS: 93306 ==